=== PATIENT | male | born 1975 | race American Indian/Alaskan Native ===

== ENCOUNTER 2019-01-11 13:15 | Emergency (ER) | payer BC ==
--- NOTE | 2019-01-11 13:33 | Emergency Department Report ---
Blank Doc - Documentation Documentation: This is a 43-year-old male that presents with left lower back pain that radiates left lower extremity. Denies any injuries or trauma. This initial assessment/diagnostic orders/clinical plan/treatment(s) is/are subject to change based on patient's health status, clinical progression and re- assessment by fellow clinical providers in the ED. Further treatment and workup at subsequent clinical providers discretion. Patient/guardians urged not to elope from the ED as their condition may be serious if not clinically assessed and managed. Initial orders include: 1- Patient sent to [facility] for further evaluation and treatment
[2019-01-11] MEDS ORDERED: DILAUDID IV ONE ×3 (14:15→15:15)
[2019-01-11] MEDS ORDERED: TORADOL IV ONE (14:15)
[2019-01-11] MEDS ORDERED: DECADRON IV ONE (14:16)
--- NOTE | 2019-01-11 14:19 | Emergency Department Report ---
ED Back Pain/Injury HPI - General Chief Complaint: Extremity Problem,Nontraumatic Stated Complaint: LFT HIP/LEG PAIN Time Seen by Provider: 01/11/19 13:29 Source: patient Limitations: No Limitations - History of Present Illness Initial Comments: Mr. Garces is a healthy 43-year-old male who presents with back pain radiating to the left hip and left knee. His PCP Dr. Bragg has prescribed Flexeril, prednisone and Sulindac without relief. No fever. No trauma. No weight loss. No bowel or bladder incontinence. 10 out of 10 throbbing cramping pain MD Complaint: back pain -: Gradual Similar Symptoms Previously: Yes Place: home Radiation: buttocks, left leg Severity: severe Severity scale (0 -10): 10 Quality: burning, stabbing Consistency: constant Worsens With: movement Context: unknown Associated Symptoms: denies other symptoms - Related Data Previous Rx's Medication Instructions Recorded Last Taken Type oxyCODONE /ACETAMINOPHEN [Percocet 1 tab PO Q6HR PRN #15 tablet 01/11/19 Unknown Rx 5/325] Allergies Allergy/AdvReac Type Severity Reaction Status Date / Time No Known Allergies Allergy Unverified 01/11/19 13:23 ED Review of Systems ROS: Stated complaint: LFT HIP/LEG PAIN Other details as noted in HPI Comment: All other systems reviewed and negative Constitutional: denies: fever, malaise Respiratory: denies: cough Cardiovascular: denies: chest pain ED Past Medical Hx - Past Medical History Previous Medical History?: No - Surgical History Past Surgical History?: No - Social History Smoking Status: Never Smoker Substance Use Type: None - Medications Home Medications: Home Medications Medication Instructions Recorded Confirmed Last Taken Type oxyCODONE /ACETAMINOPHEN [Percocet 1 tab PO Q6HR PRN #15 tablet 01/11/19 Unknown Rx 5/325] ED Physical Exam - General Limitations: No Limitations General appearance: alert, in no apparent distress, other (appears in severe pain) - Head Head exam: Present: atraumatic, normocephalic - Eye Eye exam: Present: normal appearance - ENT ENT exam: Present: mucous membranes moist - Neck Neck exam: Present: normal inspection, full ROM - Respiratory Respiratory exam: Present: normal lung sounds bilaterally. Absent: respiratory distress, wheezes, rales, rhonchi - Cardiovascular Cardiovascular Exam: Present: regular rate, normal rhythm, normal heart sounds. Absent: systolic murmur, diastolic murmur, rubs, gallop - GI/Abdominal GI/Abdominal exam: Present: soft, normal bowel sounds. Absent: distended, tenderness, guarding, rebound - Rectal Rectal exam: Present: deferred - Extremities Exam Extremities exam: Present: normal inspection - Back Exam Back exam: Present: normal inspection, full ROM - Neurological Exam Neurological exam: Present: alert, oriented X3 - Psychiatric Psychiatric exam: Present: normal affect, normal mood - Skin Skin exam: Present: warm, dry, intact, normal color. Absent: rash ED Course Vital Signs 01/11/19 13:29 Temperature 98.6 F Pulse Rate 90 Respiratory 16 Rate Blood Pressure 128/86 O2 Sat by Pulse 96 Oximetry ED Medical Decision Making - Medical Decision Making Mr. Lacy presents with severe pain due to sciatica, lumbar radiculopathy requiring IV analgesia here in the ED. Prescribed Percocet. Referred to orthopedic surgeon. Critical care attestation.: If time is entered above; I have spent that time in minutes in the direct care of this critically ill patient, excluding procedure time. ED Disposition Clinical Impression: Severe back pain, Lumbar radiculopathy, acute Disposition: DC-01 TO HOME OR SELFCARE Is pt being admited?: No Does the pt Need Aspirin: No Condition: Stable Instructions: Sciatica (ED), Lumbar Radiculopathy (ED) Prescriptions: oxyCODONE /ACETAMINOPHEN [Percocet 5/325] 1 tab PO Q6HR PRN #15 tablet PRN Reason: Pain Referrals: VIOLETA BRAGG MD [Primary Care Provider] - 3-5 Days JUNI CALDERA MD [Staff Physician] - 3-5 Days
--- NOTE | 2019-01-11 16:37 | Cat Scan Report ---
PROCEDURE: CT LUMBAR SPINE WO CON TECHNIQUE: CT examination of the lumbar spine without IV contrast HISTORY: back pain COMPARISONS: None FINDINGS: Spinal curvature with right apex at thoracolumbar junction. Developmental variation with partially lumbarized S1 and small S1-S2 disc. Vertebral compression fracture: None Spondylolysis: None Anterolisthesis: None Retrolisthesis: L4-5 trace, L5-S1 slight Disc narrowing: L4-5 slight, L5-S1 moderate Discogenic degenerative gas formation: None Degenerative hypertrophic facet arthrosis, ligamentum flavum hypertrophy, vertebral endplate hypertro phy, and disc bulge contribute to neural foraminal stenosis. Soft tissue windows suggest stenosis as follows: Right neural foraminal stenosis: L3-4 slight, L4-5 slight, L5-S1 moderate Left neural foraminal stenosis: L4-5 moderate, L5-S1 slight Soft tissue windows suggest: Diffuse disc bulge: L3-4 slight, L4-5 slight, L5-S1 moderate Focal disc protrusion: None Central canal stenosis: None visualized IMPRESSION: No acute skeletal pathology Spinal curvature with right apex at thoracolumbar junction Developmental variation with partial right S1 and small S1-S2 disc Multilevel degenerative change, retrolisthesis, disc narrowing, and neural foraminal stenosis Soft tissue windows suggest multilevel diffuse disc bulge but MRI may be more sensitive in evaluating such, in the appropriate clinical setting This document is electronically signed by Giovani Hilario MD., January 11 2019 04:35:23 PM ET
[2019-01-11] MEDS ORDERED: NORCO 5/325 PO ONE (16:46)
[2019-01-11 16:59] VITALS: BP 125/80
== END 2019-01-11 16:59 | disposition home or self-care (01) ==
LOC: ED 13:15
DX: M54.16 Radiculopathy, lumbar region (principal)
CPT/HCPCS: 72131; 96374; 96375; 96376; 99283; J1100; J1170; J1885